=== PATIENT | male | born 1945 | race Caucasian/White ===

== ENCOUNTER 2017-07-07 08:22 | Outpatient (CLI) | payer OTHER | END 2017-07-07 08:43 | disposition home or self-care (01) | LOC: LAB 08:22 | DX: M06.9 Rheumatoid arthritis, unspecified (principal) ==

== ENCOUNTER 2017-07-07 08:40 | Outpatient (CLI) | payer OTHER | END 2017-07-07 09:03 | disposition home or self-care (01) | LOC: RAD 08:40 | DX: M06.842 Other specified rheumatoid arthritis, left hand (principal); M06.841 Other specified rheumatoid arthritis, right hand ==

== ENCOUNTER 2017-09-14 07:42 | Outpatient (CLI) | payer OTHER | END 2017-09-14 07:50 | disposition home or self-care (01) | LOC: LAB 07:42 | DX: D69.49 Other primary thrombocytopenia (principal); D69.8 Other specified hemorrhagic conditions; M06.89 Other specified rheumatoid arthritis, multiple sites; D89.0 Polyclonal hypergammaglobulinemia ==

== ENCOUNTER 2017-09-18 14:26 | Outpatient (CLI) | payer OTHER | END 2017-09-18 15:00 | disposition home or self-care (01) | LOC: NUCLEAR 14:26 | DX: M81.0 Age-related osteoporosis without current pathological fracture (principal) ==

== ENCOUNTER 2017-10-19 10:53 | Outpatient (CLI) | payer OTHER | END 2017-10-19 10:55 | disposition home or self-care (01) | LOC: SONOGRAMA 10:53 | DX: R10.84 Generalized abdominal pain (principal) ==

== ENCOUNTER 2018-09-03 08:38 | Outpatient (CLI) | payer OTHER | END 2018-09-03 17:17 | disposition home or self-care (01) | LOC: LAB 08:38 | DX: E11.9 Type 2 diabetes mellitus without complications (principal); E03.8 Other specified hypothyroidism; E78.49 Other hyperlipidemia; N40.1 Benign prostatic hyperplasia with lower urinary tract symptoms; E55.9 Vitamin D deficiency, unspecified; I10 Essential (primary) hypertension; K62.5 Hemorrhage of anus and rectum ==

== ENCOUNTER 2019-04-30 07:29 | Outpatient (CLI) | payer OTHER | END 2019-04-30 07:40 | disposition home or self-care (01) | LOC: LAB 07:29 | DX: L30.8 Other specified dermatitis (principal); L90.8 Other atrophic disorders of skin ==

== ENCOUNTER 2019-06-24 08:50 | Outpatient (CLI) | payer OTHER | END 2019-06-24 09:00 | disposition home or self-care (01) | LOC: LAB 08:50 | DX: E11.9 Type 2 diabetes mellitus without complications (principal); E78.2 Mixed hyperlipidemia; N40.0 Benign prostatic hyperplasia without lower urinary tract symptoms; E03.8 Other specified hypothyroidism ==

== ENCOUNTER 2020-01-09 10:53 | Outpatient (CLI) | payer OTHER | END 2020-01-09 10:58 | disposition home or self-care (01) | LOC: LAB 10:53 | PROVIDERS: ATTEND Radiology Diagnostic Radiology | DX: N20.0 Calculus of kidney (principal) ==

== ENCOUNTER 2020-01-13 10:29 | Outpatient (CLI) | payer OTHER | END 2020-01-13 10:48 | disposition home or self-care (01) | LOC: MRI 10:29 | PROVIDERS: ATTEND Otolaryngology Otolaryngology/Facial Plastic Surgery | DX: H90.42 Sensorineural hearing loss, unilateral, left ear, with unrestricted hearing on the contralateral side (principal) | CPT/HCPCS: 70553; A9575 ==

== ENCOUNTER → 2020-11-05 07:22 | Outpatient (CLI) | payer OTHER | END | disposition home or self-care (01) | LOC: LAB 07:22 | PROVIDERS: ATTEND Radiology Diagnostic Radiology | DX: N20.0 Calculus of kidney (principal); Z51.81 Encounter for therapeutic drug level monitoring ==

== ENCOUNTER 2020-11-05 08:51 | Outpatient (CLI) | payer OTHER | END 2020-11-05 08:57 | disposition home or self-care (01) | LOC: MRI 08:51 | PROVIDERS: ATTEND Specialist | DX: H91.8X2 Other specified hearing loss, left ear (principal) | CPT/HCPCS: 70553; A9575 ==

== ENCOUNTER 2021-06-08 07:59 | Outpatient (CLI) | payer OTHER | END 2021-06-08 08:10 | disposition home or self-care (01) | LOC: RAD 07:59 | PROVIDERS: ATTEND Family Medicine Adult Medicine | DX: M54.59 Other low back pain (principal); M67.02 Short Achilles tendon (acquired), left ankle ==

== ENCOUNTER 2021-06-11 07:50 | Outpatient (CLI) | payer OTHER | END 2021-06-11 07:54 | disposition home or self-care (01) | LOC: LAB 07:50 | PROVIDERS: ATTEND Family Medicine Adult Medicine | DX: E03.8 Other specified hypothyroidism (principal); I11.9 Hypertensive heart disease without heart failure; R73.01 Impaired fasting glucose; E78.2 Mixed hyperlipidemia; N40.0 Benign prostatic hyperplasia without lower urinary tract symptoms ==

== ENCOUNTER → 2021-06-23 08:51 | Outpatient (CLI) | payer OTHER | END | disposition home or self-care (01) | LOC: LAB 08:51 | PROVIDERS: ATTEND Podiatrist Foot Surgery | DX: B16.1 Acute hepatitis B with delta-agent without hepatic coma (principal); B35.1 Tinea unguium ==

== ENCOUNTER 2021-09-06 07:41 | Outpatient (CLI) | payer OTHER | END 2021-09-06 07:42 | disposition home or self-care (01) | LOC: LAB 07:41 | PROVIDERS: ATTEND Family Medicine Adult Medicine | DX: R73.01 Impaired fasting glucose (principal); N40.0 Benign prostatic hyperplasia without lower urinary tract symptoms; E78.2 Mixed hyperlipidemia; I11.9 Hypertensive heart disease without heart failure; E21.0 Primary hyperparathyroidism; K62.5 Hemorrhage of anus and rectum; E03.9 Hypothyroidism, unspecified ==

== ENCOUNTER 2021-09-07 09:51 | Outpatient (CLI) | payer OTHER | END 2021-09-07 12:06 | disposition home or self-care (01) | LOC: LAB 09:51 | PROVIDERS: ATTEND Family Medicine Adult Medicine | DX: K62.5 Hemorrhage of anus and rectum (principal) ==

== ENCOUNTER 2022-01-24 11:23 | Outpatient (CLI) | payer OTHER | END 2022-01-24 11:30 | disposition home or self-care (01) | LOC: NUCLEAR 11:23 | PROVIDERS: ATTEND Family Medicine Adult Medicine | DX: M81.0 Age-related osteoporosis without current pathological fracture (principal) ==

== ENCOUNTER 2022-10-24 07:55 | Outpatient (CLI) | payer OTHER | END 2022-10-24 07:56 | disposition home or self-care (01) | LOC: LAB 07:55 | PROVIDERS: ATTEND Surgery | DX: K80.80 Other cholelithiasis without obstruction (principal) ==

== ENCOUNTER → 2023-07-20 09:27 | Outpatient (CLI) | payer OTHER | END | disposition home or self-care (01) | LOC: LAB 09:27 | PROVIDERS: ATTEND Family Medicine Adult Medicine | DX: N40.0 Benign prostatic hyperplasia without lower urinary tract symptoms (principal) ==

== ENCOUNTER → 2024-10-14 09:54 | Outpatient (CLI) | payer OTHER ==
[2024-10-14 11:55] LABS: CREATININE SERUM 0.88 mg/dL (0.70-1.30)
== END | disposition home or self-care (01) ==
LOC: LAB 09:54
PROVIDERS: ATTEND Specialist
DX: D64.9 Anemia, unspecified (principal); E03.4 Atrophy of thyroid (acquired); E11.9 Type 2 diabetes mellitus without complications; Z79.4 Long term (current) use of insulin; E78.5 Hyperlipidemia, unspecified; N40.0 Benign prostatic hyperplasia without lower urinary tract symptoms; E56.8 Deficiency of other vitamins; N39.0 Urinary tract infection, site not specified; R97.20 Elevated prostate specific antigen [PSA]; E55.9 Vitamin D deficiency, unspecified; D68.9 Coagulation defect, unspecified; D68.8 Other specified coagulation defects